=== PATIENT | male | born 1950 | race African-American/Black ===

== ENCOUNTER → 2017-08-19 | Outpatient (CLI) | payer MEDICARE, OTHER ==
--- NOTE | 2017-08-19 12:15 | DRAGON STRESS TEST REPORT ---
EXERCISE TREADMILL CARDIOLITE STRESS TEST USING SINGLE PHOTON EMMISION COMPUTERIZED TOMOGRAPHIC. DATE OF PROCEDURE: August 19, 2017, INDICATION : Chest pain CARDIAC RISK FACTORS: Hypertension, dyslipidemia RESTING EKG: Sinus rhythm without any baseline ST-T wave changes STRESS EKG: No significant ST segment changes from baseline. REASON FOR TERMINATION: Fatigue and tiredness and shortness of breath. PROCEDURE REPORT: Patient was exercised on a standard Nathan protocol. Patient exercised for total of 6 minutes and 15 seconds. Exercise stopped because of fatigue and shortness of breath. Patient achieved a maximum heart rate of 1 34 bpm which is 88% of predicted maximum. Maximum blood pressure was noted to be 205/87. Double product was noted to be 26 kcal CONCLUSIONS: Average exercise tolerance for patient age without any significant EKG changes with adequate heart rate and blood pressure response. NUCLEAR DATA: At rest the patient was given 15.49 millicuries of technetium 99 sestamibi injected intravenously. As per protocol rest gated SPECT images were obtained. On day of stress test, the patient was given intravenous LexiScan at a dose of 0.4 mg in 5 mL intravenously, followed by flush with normal saline. Subsequently the stress dose of 47.3 millicuries of technetium 99 sestamibi was injected intravenously. As per protocol stress gated images were obtained. NUCLEAR INTERPRETATION: Both raw and processed data were used for interpretation. Visual, qualitative, computer-generated quantitative data was used. There was good myocardial uptake of technetium compound. Motion artifact and soft tissue attenuations were noted. Increased visceral uptake was noted. No definitive areas of transient perfusion defect noted, No definitive areas of fixed perfusion defect or scars noted. EKG gated imaging showed LV EF at 62 %, rest and stress gated EF similar visually. T. I D. ratio was 1.26. Lung heart ratio noted to be within normal limits 0.31. No significant extracardiac and abnormal radiotracer activities were noted. RV free wall uptake was noted to be WNL. IMPRESSION: Also refer to comments under nuclear interpretation. Also test results needs to be interpreted in the context of pretest probability. 1. No definitive areas of transient perfusion defect noted. 2. There is no definitive scintigraphic evidence of myocardial infarction/scar. 3. EKG gated imaging shows left ventricular ejection fraction of approx. 62 %. 4. Clinical correlation requested as occasionally single vessel disease could be missed. RECOMMENDATIONS: Aggressive risk factor modification and medical management. Further evaluation may be needed if continued symptoms or other high risk indicators are noted on clinical evaluation. Close cardiology follow-up is also recommended. Clinical correlation with echocardiogram derived ejection fraction. Inability to exercise by itself can lead to increased cardiovascular event risks. Consider cardiology consultation and or follow-up if clinically indicated. I am available for cardiology evaluation and consultation if requested by the engineering writer, unless patient already has a pop singer. CHARY
--- NOTE | 2017-08-19 15:19 | XCELERA REPORT ---
[address] [address] Transthoracic Echocardiogram Report Name: TIFFAYN MOYA Age: 66 yrs Gender: Male : 1950 Patient Status: Outpatient Patient Location: RAD Study Date: 08/19/2017 10:34 AM Height: 71 in Weight: 250 lb BSA: 2.3 m2 Procedure: A complete two-dimensional transthoracic echocardiogram was performed (2D, M-mode, spectral and color flow Doppler). The study was technically difficult with many images being suboptimal in quality. Reason For Study: CP Ordering Physician: LESLIE MANDEL Performed By: Asael Ballard Interpretation Summary The left ventricular ejection fraction is normal. There is mild concentric left ventricular hypertrophy. The left ventricle is grossly normal size. Doppler measurements suggest pseudonormalized left ventricular relaxation, which is associated with grade II/IV or mild to moderate diastolic dysfunction Wall motion cannot be accurately commented on, but no definite regional wall motion abnormalities noted. The right ventricle is grossly normal size. The right ventricular systolic function is normal. The right atrium is normal in size The left atrial size is normal. There is a trace amount of mitral regurgitation There is no mitral valve stenosis. No aortic regurgitation is present. There is no aortic valve stenosis Tricuspid regurgitation jet envelope not well defined to measure RV systolic pressure accurately. No tricuspid regurgitation. The aortic root is not well visualized. The inferior vena cava appeared normal and decreased > 50% with respiration (RAP 5-10 mmHg) There is no pericardial effusion. MMode/2D Measurements & Calculations RVDd: 2.4 cm LVIDd: 4.9 cm FS: 37.1 % Ao root diam: 3.3 cm IVSd: 1.4 cm LVIDs: 3.1 cm EDV(Teich): 114.5 ml LVPWd: 1.4 cm ESV(Teich): 37.9 ml Ao root area: 8.4 cm2 EF(Teich): 66.9 % LA dimension: 3.5 cm Doppler Measurements & Calculations MV E max shelli: MV P1/2t max shelli: Ao V2 max: LV V1 max P.0 cm/sec 68.5 cm/sec 144.5 cm/sec 7.2 mmHg MV A max shelli: MV P1/2t: 84.5 msec Ao max PG: LV V1 max: 111.9 cm/sec 8.3 mmHg 133.8 cm/sec MV E/A: 0.61 MVA(P1/2t): 2.6 cm2 MV dec slope: 237.5 cm/sec2 PA V2 max: 106.9 cm/sec PA max P.6 mmHg Left Ventricle The left ventricle is grossly normal size. There is mild concentric left ventricular hypertrophy. The left ventricular ejection fraction is normal. Doppler measurements suggest pseudonormalized left ventricular relaxation, which is associated with grade II/IV or mild to moderate diastolic dysfunction. Wall motion cannot be accurately commented on, but no definite regional wall motion abnormalities noted. Right Ventricle The right ventricle is grossly normal size. There is normal right ventricular wall thickness. The right ventricular systolic function is normal. Atria The right atrium is normal in size. The left atrial size is normal. Interarterial septum not well visualized and not well dopplered. Cannot comment on ASD/PFO presence. Mitral Valve The mitral valve is not well visualized. There is no mitral valve stenosis. There is a trace amount of mitral regurgitation. Aortic Valve The aortic valve is not well visualized secondary to technical limitations. There is no aortic valve stenosis. No aortic regurgitation is present. Tricuspid Valve The tricuspid valve is not well visualized secondary to technical limitations. There is no tricuspid stenosis. Tricuspid regurgitation jet envelope not well defined to measure RV systolic pressure accurately. No tricuspid regurgitation. Pulmonic Valve The pulmonic valve is not well visualized. Great Vessels The aortic root is not well visualized. The inferior vena cava appeared normal and decreased > 50% with respiration (RAP 5-10 mmHg). Effusions There is no pericardial effusion. : LESLIE MANDEL > Jt Hernandez
== END ==
LOC: RAD 07:35
PROVIDERS: ATTEND Internal Medicine Cardiovascular Disease
DX: R07.9 Chest pain, unspecified (principal); I10 Essential (primary) hypertension; E78.5 Hyperlipidemia, unspecified
CPT/HCPCS: 93306; 93017; 78452; A9500; Q9969

== ENCOUNTER 2019-02-10 22:19 | Inpatient (IN) | payer MEDICARE, OTHER ==
[2019-02-10] MEDS ORDERED: NORMAL SALINE 1000 ML 1,000 ML IV ONE (23:51)
--- NOTE | 2019-02-10 23:51 | ER Document Report ---
ED Medical Screen (RME) - General Chief Complaint: Fever Stated Complaint: CHILLS,FEVER,FAST HEART RATE Time Seen by Provider: 02/10/19 23:41 Primary Care Provider: LESLIE MANDEL MD [Primary Care Provider] - Follow up as needed Notes: Patient is a 68-year-old male presents to the emergency department for generalized chills. States he took his temperature at home and it read 102. States he did undergo colonoscopy with Dr. Moise today. States he called their office when he found out he had a fever in their office told him to come to the emergency room. Patient's denying any URI complaints. Is complaining of generalized abdominal pain. States he is unsure if the generalized abdominal pain started before or after the colonoscopy. Patient's denying any nausea or vomiting. States he has not yet had a bowel movement since colonoscopy. Patient is denying any blood on his undergarments. GENERAL: Alert, interacts well. No acute distress. ABDOMEN: Soft, generalized tenderness noted all 4 quadrants. I have greeted and performed a rapid initial assessment of this patient. A comprehensive ED assessment and evaluation of the patient, analysis of test results and completion of the medical decision making process will be conducted by additional ED providers. I have specifically instructed the patient or family members with the patient to immediately return to any nursing staff should anything change in the patient's condition or with their chief complaint. This medical record was dictated with voice recognizing software. There may be grammatical, syntax errors that are unintended. TRAVEL OUTSIDE OF THE [place] IN LAST 30 DAYS: No - Related Data Allergies/Adverse Reactions: No Known Allergies Allergy (Unverified 12/19/15 08:45) Past Medical History - Past Medical History Cardiac Medical History: Reports: Hx Hypertension Denies: Hx Coronary Artery Disease, Hx Heart Attack Pulmonary Medical History: Denies: Hx Asthma, Hx Bronchitis, Hx COPD, Hx Pneumonia Neurological Medical History: Denies: Hx Cerebrovascular Accident, Hx Seizures Musculoskeltal Medical History: Reports Hx Arthritis - Neck, Right Shoulder - Immunizations Hx Diphtheria, Pertussis, Tetanus Vaccination: Yes Physical Exam - Vital signs Vitals: Temp Pulse Resp BP Pulse Ox 98.3 F 120 H 18 188/97 H 94 02/10/19 22:26 02/10/19 22:26 02/10/19 22:26 02/10/19 22:26 02/10/19 22:26 Course - Vital Signs Vital signs: Temp Pulse Resp BP Pulse Ox 98.3 F 120 H 18 188/97 H 94 02/10/19 22:26 02/10/19 22:26 02/10/19 22:26 02/10/19 22:02/10/19 22:26 Doctor's Discharge - Discharge Referrals: LESLIE MANDEL MD [Primary Care Provider] - Follow up as needed
[2019-02-11 00:08] LABS: VENOUS BLOOD HCO3 26.9 mmol/L (20-32); VENOUS BLOOD PH 7.46 (7.30-7.42)
[2019-02-11 00:10] LABS: HEMATOCRIT 42.8 % (37.9-51.0); HEMOGLOBIN 13.8 g/dL (13.5-17.0); MEAN CORPUSCULAR HEMOGLOBIN 23.8 pg (27.0-33.4); MEAN CORPUSCULAR HGB CONC 32.3 g/dL (32.0-36.0); MEAN CORPUSCULAR VOLUME 74 fl (80-97); PLATELET COUNT 216 10^3/uL (150-450); RED BLOOD COUNT 5.82 10^6/uL (4.35-5.55); WHITE BLOOD COUNT 9.8 10^3/uL (4.0-10.5)
[2019-02-11 00:12] LABS: INTERNATIONAL RATION (INR) 0.99; PROTHROMBIN TIME 13.1 SEC (11.4-15.4)
[2019-02-11 00:13] LABS: PARTIAL THROMBOPLASTIN TIME 30.5 SEC (23.5-35.8)
[2019-02-11 00:16] LABS: APPEARANCE,URINE CLEAR; BILIRUBIN,URINE NEGATIVE (NEGATIVE); COLOR,URINE YELLOW; GLUCOSE, URINE NEGATIVE (NEGATIVE); KETONES,URINE NEGATIVE (NEGATIVE); LEUKOCYTE ESTERASE,URINE NEGATIVE (NEGATIVE); NITRITE,URINE NEGATIVE (NEGATIVE); PROTEIN,URINE >=500 mg/dL (NEGATIVE); URINE SPECIFIC GRAVITY 1.018
--- NOTE | 2019-02-11 00:19 | RADIOLOGY REPORT (SQ) ---
EXAM DESCRIPTION: XR CHEST 2 VIEWS COMPLETED DATE/TME: 02/10/2019 23:41 CLINICAL HISTORY: 68 years, Male, fever COMPARISON: None. NUMBER OF VIEWS: Two TECHNIQUE: Frontal and lateral radiographs of the chest were obtained LIMITATIONS: None. FINDINGS: Cardiac and mediastinal contours are normal. Patchy left basilar opacity is noted, superimposed upon a linear band of atelectasis. A calcified granuloma is also noted about the left lower lobe. No pleural effusion or pneumothorax. IMPRESSION: Patchy left basilar opacity. Consider atelectasis or pneumonia to include aspiration. copyright 2010 [employer]- All Rights Reserved
[2019-02-11 00:20] LABS: ALBUMIN 3.9 g/dL (3.5-5.0); ALKALINE PHOSPHATASE 89 U/L (38-126); ANION GAP 10 (5-19); ASPARTATE AMINO TRANSFERASE 23 U/L (17-59); BILIRUBIN,DIRECT 0.2 mg/dL (0.0-0.4); BILIRUBIN,TOTAL 0.4 mg/dL (0.2-1.3); BLOOD UREA NITROGEN 15 mg/dL (7-20); CALCIUM 9.1 mg/dL (8.4-10.2); CARBON DIOXIDE 28 mmol/L (22-30); CHLORIDE 97 mmol/L (98-107); GLUCOSE 207 mg/dL (75-110); TOTAL PROTEIN 6.8 g/dL (6.3-8.2)
[2019-02-11] MEDS ORDERED: NORMAL SALINE 1000 ML 1,000 ML IV ONE (00:30)
--- NOTE | 2019-02-11 00:33 | ER Document Report ---
ED General - General Chief Complaint: Fever Stated Complaint: CHILLS,FEVER,FAST HEART RATE Time Seen by Provider: 02/10/19 23:41 Notes: Patient is a 68-year-old male that comes to the emergency department for chief complaint of shaking chills and a fever of 102 F at home. He states he had colonoscopy this morning with Dr. Moise to evaluate a mass in the colon, he states he did very well with the procedure, he states he received IV medicati on/sedation and was not intubated. He states there were no complications but after he got home he started shaking. He does have some abdominal pain, states this is been coming and going for a few days. He denies vomiting, diarrhea, cough, headache, sore throat. He states intermittently he will feel mildly short of breath but not at this time. He denies chest pain. 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 He is not on any blood thinners. He denies cardiovascular disease. He follows with [facility] internal medicine. TRAVEL OUTSIDE OF THE [place] IN LAST 30 DAYS: No - Related Data Allergies/Adverse Reactions: No Known Allergies Allergy (Unverified 12/19/15 08:45) Past Medical History - General Information source: Patient - Social History Smoking Status: Never Smoker Frequency of alcohol use: None Drug Abuse: None Lives with: Family Family History: Reviewed & Not Pertinent Patient has suicidal ideation: No Patient has homicidal ideation: No - Past Medical History Cardiac Medical History: Reports: Hx Hypertension Denies: Hx Coronary Artery Disease, Hx Heart Attack Pulmonary Medical History: Denies: Hx Asthma, Hx Bronchitis, Hx COPD, Hx Pneumonia Neurological Medical History: Denies: Hx Cerebrovascular Accident, Hx Seizures Endocrine Medical History: Reports: Hx Diabetes Mellitus Type 2 Musculoskeletal Medical History: Reports Hx Arthritis - Neck, Right Shoulder Past Surgical History: Reports: Hx Bowel Surgery - 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 - Immunizations Hx Diphtheria, Pertussis, Tetanus Vaccination: Yes Hx Pneumococcal Vaccination: 12/17/15 Review of Systems - Review of Systems Constitutional: See HPI EENT: No symptoms reported Cardiovascular: No symptoms reported Respiratory: No symptoms reported Gastrointestinal: See HPI Genitourinary: No symptoms reported Male Genitourinary: No symptoms reported Musculoskeletal: No symptoms reported Skin: No symptoms reported Hematologic/Lymphatic: No symptoms reported Neurological/Psychological: No symptoms reported Physical Exam - Vital signs Vitals: Temp Pulse Resp BP Pulse Ox 98.3 F 120 H 18 188/97 H 94 02/10/19 22:26 02/10/19 22:26 02/10/19 22:26 02/10/19 22:26 02/10/19 22:26 - Notes Notes: GENERAL: Alert, interacts well. Talkative and does not appear to be in distress. HEAD: Normocephalic, atraumatic. EYES: Pupils equal, round, and reactive to light. Extraocular movements intact. ENT: Oral mucosa moist, tongue midline. Oropharynx unremarkable. Airway patent. Nares patent, no nasal septal hematoma NECK: Full range of motion. Supple. Trachea midline. LUNGS: Clear to auscultation bilaterally, no wheezes, rales, or rhonchi. No respiratory distress. HEART: Tachycardia, normal rhythm, no murmur. ABDOMEN: Questionable mild distention, no noted significant tenderness, minimal generalized tenderness, no guarding or rigidity. GENITOURINARY: Deferred EXTREMITIES: Moves all 4 extremities spontaneously. No edema, normal radial and dorsalis pedis pulses bilaterally. No cyanosis. BACK: no cervical, thoracic, lumbar midline tenderness. No saddle anesthesia, normal distal neurovascular exam. Moves all extremities in full range of motion. NEUROLOGICAL: Alert and oriented x3. Normal speech. Cranial nerves II through XII grossly intact. PSYCH: Normal affect, normal mood. SKIN: Warm, dry, normal turgor. No rashes or lesions noted. Course - Re-evaluation Re-evalutation: Patient is not febrile here, reportedly he was febrile at home. He is tachycardic. He was given IV fluids, this did improve with IV fluids. Patient does not have a cough, tachypnea, hypoxia, however initial chest x-ray appears to show pneumonia. CBC shows elevation of neutrophils but no bandemia or leukocytosis. Chemistry nonspecific. Lactic acid is borderline at 2.5. Starting on Levaquin because of possible pneumonia versus abdominal source, patient reports some abdominal pain but he states this is not severe, he declines pain medication after he was given Tylenol. His abdomen is actually quite benign despite being mildly distended. CAT scan of the abdomen and pelvis was performed to rule out acute etiology, this shows no acute findings. On reevaluation patient remains well-appearing. Patient will be admitted for suspected pneumonia, fever, tachycardia, possibly sepsis without shock. Patient has not been given additional IV fluids because he does not have any evidence of hypotension or shock. I discussed with family, discussed with patient, and discussed with Dr. Barnard, internal medicine. Patient will be excepted to telemetry full admission. - Vital Signs Vital signs: Temp Pulse Resp BP Pulse Ox 102.8 F H 119 H 17 183/91 H 94 02/11/19 06:00 02/11/19 06:00 02/11/19 06:00 02/11/19 06:00 02/11/19 06:00 - Laboratory Result Diagrams: 02/10/19 23:40 02/10/19 23:40 Laboratory results interpreted by me: 02/10/19 02/10/19 02/10/19 23:40 23:40 23:40 RBC 5.82 H MCV 74 L MCH 23.8 L Seg Neuts % (Manual) 88 H Lymphocytes % (Manual) 6 L Abs Neuts (Manual) 8.6 H VBG pH Sodium 134.5 L Chloride 97 L Creatinine 1.58 H Est GFR ( Amer) 53 L Est GFR (MDRD) Non-Af 44 L Glucose 207 H Lactic Acid 2.5 H Urine Protein Urine Urobilinogen 02/10/19 02/10/19 23:40 23:40 RBC MCV MCH Seg Neuts % (Manual) Lymphocytes % (Manual) Abs Neuts (Manual) VBG pH 7.46 H Sodium Chloride Creatinine Est GFR ( Amer) Est GFR (MDRD) Non-Af Glucose Lactic Acid Urine Protein >=500 H Urine Urobilinogen 2.0 H Discharge - Discharge Clinical Impression: Tachycardia, Shaking chills Fever Qualifiers: Fever type: unspecified Qualified Code(s): R50.9 - Fever, unspecified Pneumonia Qualifiers: Pneumonia type: due to unspecified organism Laterality: left Lung location: lower lobe of lung Qualified Code(s): J18.1 - Lobar pneumonia, unspecified organism Abdominal pain Qualifiers: Abdominal location: generalized Qualified Code(s): R10.84 - Generalized abdominal pain Condition: Stable Disposition: ADMITTED INPATIENT Admitting Provider: Akil (Hospitalist) Unit Admitted: Telemetry
[2019-02-11 00:35] LABS: ABSOLUTE LYMPHOCYTES# (MANUAL) 0.6 10^3/uL (0.5-4.7); ABSOLUTE MONOCYTES # (MANUAL) 0.4 10^3/uL (0.1-1.4); BASOPHILS % (MANUAL) 0 % (0-2); EOSINOPHILS % (MANUAL) 2 % (0-6); HYPOCHROMASIA SLIGHT; LYMPHOCYTES % (MANUAL) 6 % (13-45); MONOCYTES % (MANUAL) 4 % (3-13); SEGMENTED NEUTROPHILS % (MAN) 88 % (42-78); TOTAL CELLS COUNTED 100
[2019-02-11 00:36] LABS: ANISOCYTOSIS SLIGHT
[2019-02-11 00:37] LABS: PLATELET COMMENT ADEQUATE
[2019-02-11] MEDS ORDERED: LEVOFLOXACIN 750 MG/D5W RTU 750 MG/150 ML RTUPB IV ONE (01:16)
[2019-02-11] MEDS ORDERED: ACETAMINOPHEN 325 MG TABLET PO ONE (03:00)
--- NOTE | 2019-02-11 03:51 | RADIOLOGY REPORT (SQ) ---
EXAM DESCRIPTION: CT ABDOMEN PELVIS WITH IV CONTRAST COMPLETED DATE/TME: 02/10/2019 23:50 CLINICAL HISTORY: 68 years Male, general pain Comparison: None. Technique: IV contrast. Coronal and sagittal reformat. This exam was performed according to our departmental dose-optimization program, which includes automated exposure control, adjustment of the mA and/or kV according to patient size and/or use of iterative reconstruction technique. [facility]: Dose Right [facility]: CareDose [facility]: Dose Right [facility]: Teradose 4D [facility]: EDF [employer] LIMITATIONS: None Findings: Likely benign renal cyst(s), not definitively characterized. Gallbladder dilation with 4.5 cm transverse diameter. Small sludge. Old granulomatous disease. Bowel related suture at the anterior lower abdomen. 1.0 cm left adrenal adenoma. Moderate L5-S1 disc bulge-osteophyte complex with [id number] spinal and foraminal stenoses. Bilateral perinephric fat stranding, nonspecific. No ascites. No pneumoperitoneum. Normal appendix. No bowel obstruction. No hydronephrosis or hydroureter. No renal/ureteral stone. No evidence of abdominal aortic aneurysm. Inferior thorax, liver, gallbladder, pancreas, spleen, adrenals, renal system, gastrointestinal tract, pelvic organs, lymphatics, vasculature, and musculoskeleton appear otherwise unremarkable. IMPRESSION: No acute findings.
[2019-02-11] MEDS ORDERED: DEXTROSE 40% GEL 15 GM TUBE PO PRN ×2 (04:15)
[2019-02-11] MEDS ORDERED: IPRATROPIUM/ALBUTEROL 0.5-2.5 MG/3 ML AMPUL NEB PRN (04:15)
[2019-02-11] MEDS ORDERED: DEXTROSE 50%-WATER 25 GM/50 ML DISP.SYRIN IV PRN ×2 (04:15)
[2019-02-11] MEDS ORDERED: GLUCAGON,HUMAN RECOMB 1 MG INJ IM PRN (04:15)
[2019-02-11] MEDS: HYDRALAZINE HCL INJ/PF 20 MG/1 ML SDV IV PRN (05:55)
[2019-02-11] MEDS: HEPARIN SOD (PORCINE) 5,000 UNIT/ML 1 ML VIAL SUBCUT SCH ×3 (05:55→21:18)
[2019-02-11] MEDS: NORMAL SALINE 1000 ML 1,000 ML IV PRN ×2 (06:11→14:22)
[2019-02-11] MEDS ORDERED: METRONIDAZOLE 500 MG/NS RTU 500 MG/100 ML RTUPB IV ONE ×2 (06:24→06:45)
--- NOTE | 2019-02-11 06:40 | PDOC H&P ---
History of Present Illness Admission Date/PCP: 02/11/19 04:19 TIFFANY FREIRE JR, MD Patient complains of: Fever History of Present Illness: TIFFANY MOYA is a 68 year old male with a past medical history of obesity, hypertension, diabetes, stage II chronic kidney disease, status post small bowel neuroendocrine tumor followed at [facility]. He presents postop day 0 following colonoscopy with biopsy x3 with Dr. Moise. He denies abdominal pain, cough, shortness of breath or chest pain. In the emergency room he has a chest x-ray with a left lower lobe scar which is known to the patient from the , a CT of the abdomen is negative for acute finding. He started on empiric antibiotics and referred to the hospitalist for admission. Past Medical History Cardiac Medical History: Reports: Hypertension Denies: Coronary Artery Disease, Myocardial Infarction Pulmonary Medical History: Denies: Asthma, Bronchitis, Chronic Obstructive Pulmonary Disease (COPD), Pneumonia Neurological Medical History: Denies: Seizures Endocrine Medical History: Reports: Diabetes Mellitus Type 2, Obesity Musculoskeltal Medical History: Reports: Arthritis - Neck, Right Shoulder Hematology: Denies: Anemia Past Surgical History Past Surgical History: Reports: Other - Small bowel neuroendocrine tumor resection Social History Information Source: Patient - Thank you very much Smoking Status: Unknown if Ever Smoked Frequency of Alcohol Use: Occasional Drugs: None - Advance Directive Resuscitation Status: Full Code Family History Family History: DM, Hypertension Parental Family History Reviewed: Yes Children Family History Reviewed: Yes Sibling(s) Family History Reviewed.: Yes Medication/Allergy Home Medications: Alfuzosin HCl [Uroxatral] 10 mg PO QHS 12/19/15 Aspirin [Ecotrin] 81 mg PO DAILY 12/19/15 Atorvastatin Calcium [Lipitor 10 mg Tablet] 10 mg PO QHS 12/19/15 Bupropion HCl [Wellbutrin 100 mg Tablet] 100 mg PO BID 12/19/15 Cholecalciferol (Vitamin D3) [Vitamin D3 2000 unit Tablet] 2,000 unit PO DAILY 12/19/15 Docusate Sodium [Stool Softener] 100 mg PO QHS 12/19/15 Finasteride [Proscar 5 mg Tablet] 5 mg PO DAILY 12/19/15 Hydrochlorothiazide 25 mg PO DAILY 12/19/15 Krill/Om3/Dha/Epa/Om6/Lip/Astx [Krill Oil 1,000 Mg Softgel] 1 each PO DAILY 12/19/15 Lisinopril 20 mg PO DAILY 12/19/15 Metoprolol Succinate [Toprol Xl 25 mg Tab.sr] 25 mg PO DAILY 12/19/15 Multivitamin [Multivitamins] 1 each PO DAILY 12/19/15 Tolterodine Tartrate [Detrol La] 4 mg PO QHS 12/19/15 Allergies/Adverse Reactions: No Known Allergies Allergy (Unverified 12/19/15 08:45) Review of Systems Constitutional: ABSENT: chills, fever(s), headache(s), weight gain, weight loss Eyes: ABSENT: visual disturbances Ears: ABSENT: hearing changes Cardiovascular: ABSENT: chest pain, dyspnea on exertion, edema, orthropnea, palpitations Respiratory: ABSENT: cough, hemoptysis Gastrointestinal: ABSENT: abdominal pain, constipation, diarrhea, hematemesis, hematochezia, nausea, vomiting Genitourinary: ABSENT: dysuria, hematuria Musculoskeletal: ABSENT: joint swelling Integumentary: ABSENT: rash, wounds Neurological: ABSENT: abnormal gait, abnormal speech, confusion, dizziness, focal weakness, syncope Psychiatric: ABSENT: anxiety, depression, homidical ideation, suicidal ideation Endocrine: ABSENT: cold intolerance, heat intolerance, polydipsia, polyuria Hematologic/Lymphatic: ABSENT: easy bleeding, easy bruising Physical Exam Vital Signs: Temp Pulse Resp BP Pulse Ox 102.8 F H 119 H 17 183/91 H 94 02/11/19 06:00 02/11/19 06:00 02/11/19 06:00 02/11/19 06:00 02/11/19 06:00 Intake & Output 02/09/19 02/10/19 02/11/19 11:59 11:59 11:59 Intake Total 2150 Balance 2150 Weight 114.9 kg General appearance: PRESENT: cooperative, mild distress, morbidly obese, well- developed, well-nourished Head exam: PRESENT: atraumatic, normocephalic Eye exam: PRESENT: conjunctiva pink, EOMI, PERRLA. ABSENT: scleral icterus Ear exam: PRESENT: normal external ear exam Mouth exam: PRESENT: moist, tongue midline Neck exam: ABSENT: carotid bruit, JVD, lymphadenopathy, thyromegaly Respiratory exam: PRESENT: clear to auscultation sha. ABSENT: rales, rhonchi, wheezes Cardiovascular exam: PRESENT: RRR. ABSENT: diastolic murmur, rubs, systolic murmur Pulses: PRESENT: normal dorsalis pedis pul Vascular exam: PRESENT: normal capillary refill GI/Abdominal exam: PRESENT: normal bowel sounds, soft. ABSENT: distended, guarding, mass, organolmegaly, rebound, tenderness Rectal exam: PRESENT: deferred Extremities exam: PRESENT: full ROM. ABSENT: calf tenderness, clubbing, pedal edema Neurological exam: PRESENT: alert, awake, oriented to person, oriented to place, oriented to time, oriented to situation, CN II-XII grossly intact. ABSENT: motor sensory deficit Psychiatric exam: PRESENT: appropriate affect, normal mood. ABSENT: homicidal ideation, suicidal ideation Skin exam: PRESENT: dry, intact, warm. ABSENT: cyanosis, rash Results Laboratory Results: 02/10/19 23:40 02/10/19 23:40 02/10/19 02/10/19 02/10/19 23:40 23:40 23:40 WBC 9.8 RBC 5.82 H Hgb 13.8 Hct 42.8 MCV 74 L MCH 23.8 L MCHC 32.3 RDW 14.0 Plt Count 216 Seg Neutrophils % Not Reportable VBG pH VBG pCO2 VBG HCO3 VBG Base Excess Sodium 134.5 L Potassium 4.0 Chloride 97 L Carbon Dioxide 28 Anion Gap 10 BUN 15 Creatinine 1.58 H Est GFR ( Amer) 53 L Glucose 207 H Lactic Acid 2.5 H Calcium 9.1 Total Bilirubin 0.4 AST 23 Alkaline Phosphatase 89 Total Protein 6.8 Albumin 3.9 Urine Color Urine Appearance Urine pH Ur Specific [place] Urine Protein Urine Glucose (UA) Urine Ketones Urine Blood Urine Nitrite Ur Leukocyte Esterase Urine WBC (Auto) Urine RBC (Auto) 02/10/19 02/10/19 23:40 23:40 WBC RBC Hgb Hct MCV MCH MCHC RDW Plt Count Seg Neutrophils % VBG pH 7.46 H VBG pCO2 39.0 VBG HCO3 26.9 VBG Base Excess 3.0 Sodium Potassium Chloride Carbon Dioxide Anion Gap BUN Creatinine Est GFR ( Amer) Glucose Lactic Acid Calcium Total Bilirubin AST Alkaline Phosphatase Total Protein Albumin Urine Color YELLOW Urine Appearance CLEAR Urine pH 6.0 Ur Specific [place] 1.018 Urine Protein >=500 H Urine Glucose (UA) NEGATIVE Urine Ketones NEGATIVE Urine Blood NEGATIVE Urine Nitrite NEGATIVE Ur Leukocyte Esterase NEGATIVE Urine WBC (Auto) 3 Urine RBC (Auto) 1 Impressions: Chest X-Ray 02/10/19 23:41 IMPRESSION: Patchy left basilar opacity. Consider atelectasis or pneumonia to include aspiration. copyright 2010 [employer]- All Rights Reserved Abdomen/Pelvis CT 02/10/19 23:50 IMPRESSION: No acute findings. Assessment and Plan - Diagnosis (1) Acute abdomen Is this a current diagnosis for this admission?: Yes Plan: Possibly related to POD 0 colonoscopy with biopsy, large-bore IV access, normal saline fluid challenge, imipenem and Flagyl, surgical consult pending (2) Diabetes Is this a current diagnosis for this admission?: Yes Plan: Humalog sliding scale while n.p.o. (3) Chronic kidney disease Is this a current diagnosis for this admission?: Yes Plan: Avoid nephrotoxic meds and doses, IV fluid challenge, follow-up chemistry (4) Fever Qualifiers: Fever type: unspecified Qualified Code(s): R50.9 - Fever, unspecified Is this a current diagnosis for this admission?: Yes Plan: Secondary to #1, - Time Time Spent with patient: 25-34 minutes - Inpatient Certification Medical Necessity: Need Close Monitoring Due to Risk of Patient Decompensation
[2019-02-11] MEDS ORDERED: METOPROLOL TARTRATE PF/INJ 5 MG/5 ML SDV IV PRN (06:42)
--- NOTE | 2019-02-11 07:00 | PDOC CONSULTATION ---
Consultation Consult Date: 02/11/19 Provider Consulted: MICHAEL BAUTISTA Consult reason:: Abdominal pains History of Present Illness Admission Date/PCP: 02/11/19 04:19 TIFFANY FREIRE JR, MD History of Present Illness: TIFFANY MOYA is a 68 year old male with known history of neuroendocrine tumor post ileal resection a year ago with chemotherapy chemotherapy at [facility], had a colonoscopy done by Dr. Moise yesterday. Patient is admitted for pneumonia and had chills and fever. His pains noted to come back this morning and with some nausea. Dr. Moise apparently removed 3 polyps. He was told that during the resection of the ileum there was a tumor on the nerve but then the surgeon at the [facility] cannot remove because of the risk of nerve injury. Patient had a CAT scan of the abdomen yesterday after colonoscopy which was essentially unremarkable. Patient able to pass a small amount of flatus but no bowel movement. Past Medical History Cardiac Medical History: Reports: Hypertension Denies: Coronary Artery Disease, Myocardial Infarction Pulmonary Medical History: Denies: Asthma, Bronchitis, Chronic Obstructive Pulmonary Disease (COPD), Pneumonia Neurological Medical History: Denies: Seizures Endocrine Medical History: Reports: Diabetes Mellitus Type 2, Obesity Musculoskeltal Medical History: Reports: Arthritis - Neck, Right Shoulder Hematology: Denies: Anemia Past Surgical History Past Surgical History: Reports: Other - Small bowel neuroendocrine tumor resection Social History Smoking Status: Former Smoker Frequency of Alcohol Use: Occasional Drugs: None - Advance Directive Resuscitation Status: Full Code Family History Family History: DM, Hypertension Parental Family History Reviewed: Yes Children Family History Reviewed: No Sibling(s) Family History Reviewed.: No Medication/Allergy Home Medications: Alfuzosin HCl [Uroxatral] 10 mg PO QHS 12/19/15 Aspirin [Ecotrin] 81 mg PO DAILY 12/19/15 Atorvastatin Calcium [Lipitor 10 mg Tablet] 10 mg PO QHS 12/19/15 Bupropion HCl [Wellbutrin 100 mg Tablet] 100 mg PO BID 12/19/15 Cholecalciferol (Vitamin D3) [Vitamin D3 2000 unit Tablet] 2,000 unit PO DAILY 12/19/15 Docusate Sodium [Stool Softener] 100 mg PO QHS 12/19/15 Finasteride [Proscar 5 mg Tablet] 5 mg PO DAILY 12/19/15 Hydrochlorothiazide 25 mg PO DAILY 12/19/15 Krill/Om3/Dha/Epa/Om6/Lip/Astx [Krill Oil 1,000 Mg Softgel] 1 each PO DAILY 12/19/15 Lisinopril 20 mg PO DAILY 12/19/15 Metoprolol Succinate [Toprol Xl 25 mg Tab.sr] 25 mg PO DAILY 12/19/15 Multivitamin [Multivitamins] 1 each PO DAILY 12/19/15 Tolterodine Tartrate [Detrol La] 4 mg PO QHS 12/19/15 Allergies/Adverse Reactions: No Known Allergies Allergy (Unverified 12/19/15 08:45) Review of Systems Constitutional: PRESENT: as per HPI Gastrointestinal: PRESENT: abdominal pain, nausea Physical Exam Vital Signs: Temp Pulse Resp BP Pulse Ox 102.8 F H 119 H 17 183/91 H 94 02/11/19 06:00 02/11/19 06:00 02/11/19 06:00 02/11/19 06:00 02/11/19 06:00 Intake & Output 02/09/19 02/10/19 02/11/19 06:59 06:59 06:59 Intake Total 2150 Balance 2150 Weight 114.9 kg General appearance: PRESENT: mild distress Head exam: PRESENT: atraumatic Eye exam: PRESENT: conjunctiva pink Mouth exam: PRESENT: moist Neck exam: PRESENT: full ROM Respiratory exam: PRESENT: rhonchi Cardiovascular exam: PRESENT: RRR Pulses: PRESENT: normal radial pulses Vascular exam: PRESENT: normal capillary refill GI/Abdominal exam: PRESENT: distended, soft, tenderness - Of the epigastric area Rectal exam: PRESENT: deferred Extremities exam: PRESENT: full ROM Musculoskeletal exam: PRESENT: ambulatory Neurological exam: PRESENT: alert, oriented to person, oriented to place, oriented to time, oriented to situation Psychiatric exam: PRESENT: appropriate affect Skin exam: PRESENT: normal color, warm Results Laboratory Results: 02/10/19 23:40 02/10/19 23:40 02/10/19 02/10/19 02/10/19 23:40 23:40 23:40 WBC 9.8 RBC 5.82 H Hgb 13.8 Hct 42.8 MCV 74 L MCH 23.8 L MCHC 32.3 RDW 14.0 Plt Count 216 Seg Neutrophils % Not Reportable VBG pH VBG pCO2 VBG HCO3 VBG Base Excess Sodium 134.5 L Potassium 4.0 Chloride 97 L Carbon Dioxide 28 Anion Gap 10 BUN 15 Creatinine 1.58 H Est GFR ( Amer) 53 L Glucose 207 H Lactic Acid 2.5 H Calcium 9.1 Total Bilirubin 0.4 AST 23 Alkaline Phosphatase 89 Total Protein 6.8 Albumin 3.9 Urine Color Urine Appearance Urine pH Ur Specific [place] Urine Protein Urine Glucose (UA) Urine Ketones Urine Blood Urine Nitrite Ur Leukocyte Esterase Urine WBC (Auto) Urine RBC (Auto) 02/10/19 02/10/19 23:40 23:40 WBC RBC Hgb Hct MCV MCH MCHC RDW Plt Count Seg Neutrophils % VBG pH 7.46 H VBG pCO2 39.0 VBG HCO3 26.9 VBG Base Excess 3.0 Sodium Potassium Chloride Carbon Dioxide Anion Gap BUN Creatinine Est GFR ( Amer) Glucose Lactic Acid Calcium Total Bilirubin AST Alkaline Phosphatase Total Protein Albumin Urine Color YELLOW Urine Appearance CLEAR Urine pH 6.0 Ur Specific [place] 1.018 Urine Protein >=500 H Urine Glucose (UA) NEGATIVE Urine Ketones NEGATIVE Urine Blood NEGATIVE Urine Nitrite NEGATIVE Ur Leukocyte Esterase NEGATIVE Urine WBC (Auto) 3 Urine RBC (Auto) 1 Impressions: Chest X-Ray 02/10/19 23:41 IMPRESSION: Patchy left basilar opacity. Consider atelectasis or pneumonia to include aspiration. copyright 2011 [employer]- All Rights Reserved Abdomen/Pelvis CT 02/10/19 23:50 IMPRESSION: No acute findings. Assessment & Plan - Diagnosis (1) Abdominal pain Qualifiers: Abdominal location: generalized Qualified Code(s): R10.84 - Generalized abdominal pain Is this a current diagnosis for this admission?: Yes (2) Pneumonia Qualifiers: Pneumonia type: due to unspecified organism Laterality: left Lung location: lower lobe of lung Qualified Code(s): J18.1 - Lobar pneumonia, unspecified organism Is this a current diagnosis for this admission?: Yes (3) Neuroendocrine tumor Is this a current diagnosis for this admission?: Yes - Time Time Spent: 30 to 50 Minutes - Inpatient Certification Medical Necessity: Need for IV Antibiotics - Plan Summary Plan Summary: 68-year-old male post ileal resection for neuroendocrine tumor last year at [facility]. Surgeon at the time noted tumor on the nerve and deferred removing it because of injury to the nerve and therefore patient was referred to [facility] and now on chemotherapy. Yesterday he had a colonoscopy done by Dr. Moise who found 3 polyps. He did have some mild abdominal pains before the colonoscopy and on admission today from the ED for pneumonia noted more pain to the epigastric area with nausea. Had a CT scan of the abdomen is was unremarkable Physical examination the abdomen is slightly distended but soft with mild tenderness in the epigastric area. Impression is abdominal pain possibly related to the colonoscopy versus referred pain from the pneumonia or part of the neuroendocrine tumor symptomatology Plans: 1 continue to monitor physical examination 2 neuroendocrine titers including CEA 3 may need upper endoscopy if symptoms persist
[2019-02-11] MEDS: INSULIN LISPRO 100 UNIT/ML 3 ML VIAL SUBCUT SCH ×3 (07:02→17:00)
[2019-02-11] MEDS ORDERED: IMIPENEM/CILASTATIN SODIUM INJ 500 MG VIAL IV ONE (07:22)
[2019-02-11] MEDS ORDERED: IMIPENEM/CILASTATIN SODIUM 1,000 MG in NORMAL SALINE 250 ML IV ONE (07:30)
[2019-02-11] MEDS: MORPHINE SULFATE 10 MG/ML INJ IV PRN (07:47)
--- NOTE | 2019-02-11 07:57 | Progress Note ---
Provider Note Provider Note: pt reexamined this am abd soft, non tender mild epigastric distress ct reviwed, no acute findings will start clears cont iv abx, re poss aspiration pneumonia seen on ct and cxr.
[2019-02-11] MEDS ORDERED: INSULIN LISPRO 100 UNIT/ML 3 ML VIAL SUBCUT SCH (08:00)
[2019-02-11] MEDS: IPRATROPIUM/ALBUTEROL 0.5-2.5 MG/3 ML AMPUL NEB SCH ×2 (08:10→16:17)
--- NOTE | 2019-02-11 08:51 | EKG REPORT ---
SEVERITY:- ABNORMAL ECG - SINUS TACHYCARDIA MAGNO, CONSIDER BIATRIAL ABNORMALITIES CONSIDER ANTERIOR INFARCT : Confirmed by: Jt Hernandez 11-Feb-2019 08:49:38
[2019-02-11] MEDS ORDERED: IMIPENEM/CILASTATIN SODIUM 1,000 MG in NORMAL SALINE 250 ML IV SCH ×2 (09:00→12:00)
[2019-02-11] MEDS: IMIPENEM/CILASTATIN SODIUM 500 MG in NORMAL SALINE 100 ML IV SCH ×2 (09:44→14:20)
[2019-02-11] MEDS: FLUTICASONE NASAL SPRAY 50 MCG/SPRY 120 SPRAY/16 GM NASL SCH ×2 (09:47→21:21)
[2019-02-11] MEDS ORDERED: METOPROLOL TARTRATE 25 MG TABLET PO SCH (10:00)
[2019-02-11] MEDS: METRONIDAZOLE 500 MG/NS RTU 500 MG/100 ML RTUPB IV SCH ×2 (11:57→17:02)
[2019-02-11] MEDS: CEFTRIAXONE 1 GM/D5W RTU 1 GM/50 ML RTUPB IV SCH (13:07)
[2019-02-11] MEDS ORDERED: ONDANSETRON HCL INJ/PF 4 MG/2 ML SDV IV PRN (16:11)
[2019-02-11] MEDS: LOSARTAN POTASSIUM 50 MG TABLET PO SCH (17:10)
[2019-02-11] MEDS: ACETAMINOPHEN 325 MG TABLET PO PRN ×2 (17:11→21:38)
[2019-02-11] MEDS ORDERED: (PENDING PHARMACY ID) (Telmisartan [Micardis 80 Mg Tablet] 80 MG) PO SCH (18:00)
[2019-02-11] MEDS: METOPROLOL SUCCINATE 25 MG TAB.SR.24H PO SCH (21:19)
[2019-02-11] MEDS: ASPIRIN 81 MG TABLET, ENT COATED PO SCH (21:20)
[2019-02-11] MEDS: TOLTERODINE TARTRATE 1 MG TABLET PO SCH (21:20)
[2019-02-11] MEDS: ATORVASTATIN CALCIUM 10 MG TABLET PO SCH (21:20)
[2019-02-11] MEDS ORDERED: (PENDING PHARMACY ID) (Bupropion Hcl [Wellbutrin Sr 100 Mg Tablet] 1 TAB) PO SCH (22:00)
[2019-02-11] MEDS ORDERED: LEVOFLOXACIN 750 MG/D5W RTU 750 MG/150 ML RTUPB IV SCH (22:00)
[2019-02-11] MEDS ORDERED: (PENDING PHARMACY ID) (Solifenacin Succinate [Vesicare] 10 MG) PO SCH (22:00)
[2019-02-12] MEDS: IPRATROPIUM/ALBUTEROL 0.5-2.5 MG/3 ML AMPUL NEB SCH ×4 (00:14→23:57)
[2019-02-12] MEDS: INSULIN LISPRO 100 UNIT/ML 3 ML VIAL SUBCUT SCH ×5 (00:58→23:04)
[2019-02-12] MEDS: MORPHINE SULFATE 10 MG/ML INJ IV PRN (04:02)
[2019-02-12 05:05] LABS: ABSOLUTE EOSINOPHILS # (AUTO) 0.1 10^3/uL (0.0-0.6); ABSOLUTE LYMPHOCYTES (AUTO) 0.5 10^3/uL (0.5-4.7); ABSOLUTE MONOCYTES (AUTO) 0.5 10^3/uL (0.1-1.4); ABSOLUTE NEUT (AUTO) 5.5 10^3/uL (1.7-8.2); BASOPHILS % (AUTO) 0.2 % (0-2); EOSINOPHILS % (AUTO) 0.8 % (0-6); HEMATOCRIT 39.2 % (37.9-51.0); HEMOGLOBIN 12.6 g/dL (13.5-17.0); LYMPHOCYTES % (AUTO) 7.7 % (13-45); MEAN CORPUSCULAR HEMOGLOBIN 23.5 pg (27.0-33.4); MEAN CORPUSCULAR HGB CONC 32.2 g/dL (32.0-36.0); MEAN CORPUSCULAR VOLUME 73 fl (80-97); PLATELET COUNT 178 10^3/uL (150-450); RED BLOOD COUNT 5.37 10^6/uL (4.35-5.55); RED CELL DISTRIBUTION WIDTH 14.2 % (11.5-14.0); SEGMENTED NEUTROPHILS % (AUTO) 83.3 % (42-78); TOTAL CELLS COUNTED % (AUTO) 100 %; WHITE BLOOD COUNT 6.6 10^3/uL (4.0-10.5)
[2019-02-12 05:34] LABS: ANION GAP 8 (5-19); BLOOD UREA NITROGEN 10 mg/dL (7-20); CALCIUM 8.3 mg/dL (8.4-10.2); CARBON DIOXIDE 24 mmol/L (22-30); CHLORIDE 103 mmol/L (98-107); GLUCOSE 163 mg/dL (75-110); POTASSIUM 3.9 mmol/L (3.6-5.0)
[2019-02-12] MEDS: HEPARIN SOD (PORCINE) 5,000 UNIT/ML 1 ML VIAL SUBCUT SCH ×3 (05:50→21:17)
--- NOTE | 2019-02-12 08:11 | Progress Note ---
Provider Note Provider Note: pt abd pain improved still rx for aspiration pneumonia please reconsult surgery as necessary.
--- NOTE | 2019-02-12 09:07 | PDOC PROGRESS REPORT ---
Subjective Progress Note for:: 02/12/19 Subjective:: TIFFANY MOYA is a 68 year old male with a past medical history of obesity, hypertension, diabetes, stage II chronic kidney disease, status post small bowel neuroendocrine tumor followed at [facility]. He presents postop day 0 following colonoscopy with biopsy x3 with Dr. Moise. He denies abdominal pain, cough, shortness of breath or chest pain. In the emergency room he has a chest x-ray with a left lower lobe scar which is known to the patient from the , a CT of the abdomen is negative for acute finding. He started on empiric antibiotics and referred to the hospitalist for admission. 02/12/2019. No acute events overnight. Comfortably resting in bed, in no apparent distress, passing flatus, has not had any bowel movement, denies any shortness of breath, fever, cough, nausea, vomiting, diarrhea, or any urinary symptoms. Abdomen is soft, denies any pain, surgery has signed off, plan is to keep for another day, advance diet, continue antibiotics for aspiration pneumonia and discharge home tomorrow. Reason For Visit: DM, PNUEMONIA Physical Exam Vital Signs: Temp Pulse Resp BP Pulse Ox 100.0 F 86 16 161/96 H 91 L 02/12/19 03:57 02/12/19 08:54 02/12/19 08:54 02/12/19 03:57 02/12/19 08:54 Intake & Output 02/11/19 02/12/19 02/13/19 06:59 06:59 06:59 Intake Total 2150 2090 Output Total 0 1250 Balance 2150 840 Weight 114.9 kg 115.5 kg General appearance: PRESENT: obese Head exam: PRESENT: atraumatic, normocephalic Respiratory exam: PRESENT: clear to auscultation sha. ABSENT: rales, rhonchi, wheezes Cardiovascular exam: PRESENT: RRR. ABSENT: diastolic murmur, rubs, systolic murmur GI/Abdominal exam: PRESENT: normal bowel sounds, soft. ABSENT: distended, guarding, mass, organolmegaly, rebound, tenderness Extremities exam: PRESENT: full ROM. ABSENT: calf tenderness, clubbing, pedal edema Neurological exam: PRESENT: alert, awake, oriented to person, oriented to place, oriented to time, oriented to situation, CN II-XII grossly intact. ABSENT: motor sensory deficit Results Laboratory Results: 02/12/19 04:46 02/12/19 04:46 02/12/19 02/12/19 04:46 04:46 WBC 6.6 RBC 5.37 Hgb 12.6 L Hct 39.2 MCV 73 L MCH 23.5 L MCHC 32.2 RDW 14.2 H Plt Count 178 Seg Neutrophils % 83.3 H Sodium 135.0 L Potassium 3.9 Chloride 103 Carbon Dioxide 24 Anion Gap 8 BUN 10 Creatinine 1.28 H Est GFR ( Amer) > 60 Glucose 163 H Calcium 8.3 L Impressions: Chest X-Ray 02/10/19 23:41 IMPRESSION: Patchy left basilar opacity. Consider atelectasis or pneumonia to include aspiration. copyright 2011 [employer]- All Rights Reserved Abdomen/Pelvis CT 02/10/19 23:50 IMPRESSION: No acute findings. Assessment and Plan - Diagnosis (1) Aspiration pneumonia Qualifiers: Lung location: unspecified part of lung Is this a current diagnosis for this admission?: Yes Plan: Patient had fever chills and abdominal pain post colonoscopy as outpatient. Likely aspiration pneumonitis VS bacterial aspiration pneumonia. T-max 100.0, SPO2 90 to 100%. WBC, cultures negative, denies any cough or chest pain. CXR patchy left basilar opacity, atelectasis VS aspiration pneumonia. Day 2 IV antibiotics. Day 2 IV ceftriaxone. Received 1 day of imipenem. Received 1 day of Flagyl. Received 1 dose of IV levofloxacin. Continue empiric IV antibiotics, monitor vitals, follow-up cultures, possible DC home tomorrow if vitals WNL. (2) Acute respiratory failure with hypoxia Is this a current diagnosis for this admission?: Yes Plan: Due to #2. Plan as per #2. (3) Abdominal pain Qualifiers: Abdominal location: generalized Qualified Code(s): R10.84 - Generalized abdominal pain Is this a current diagnosis for this admission?: Yes Plan: Was admitted for possible acute abdomen post colonoscopy as outpatient. Resolved. Passing flatus. Has not had a bowel movement. Denies any melena or hematochezia. CT abdomen negative for any acute abnormalities. Received 1 day of imipenem. Received 1 day of Flagyl. Received 1 dose of IV levofloxacin. Surgery has signed off. Benign abdomen on physical examination. Normal bowel sounds. Advance diet as tolerated. Supportive measures. (4) Chronic kidney disease Is this a current diagnosis for this admission?: Yes Plan: Avoid nephrotoxic meds and doses, IV fluid challenge, follow-up chemistry (5) Diabetes Qualifiers: Diabetes mellitus type: type 2 Is this a current diagnosis for this admission?: Yes Plan: Controlled. Takes sitagliptin at home. Diabetic diet, sliding scale insulin, Accu-Chek, hypoglycemic protocol. Adjust dosage as needed. Outpatient PCP follow-up. Restart home meds upon discharge. (6) Fever Qualifiers: Fever type: unspecified Qualified Code(s): R50.9 - Fever, unspecified Is this a current diagnosis for this admission?: Yes Plan: T-max 100. Plan as per #1. (7) Neuroendocrine tumor Is this a current diagnosis for this admission?: Yes Plan: Establish outpatient care. Outpatient oncology follow-up. (8) Hypertension Is this a current diagnosis for this admission?: Yes Plan: Not optimized. Takes losartan, metoprolol and hydrochlorothiazide as outpatient. Increase losartan 200 mg p.o. daily, continue Toprol-XL 25 mg nightly, switch hydrochlorothiazide with chlorthalidone as the latter one is long acting. Adjust meds as needed.
[2019-02-12] MEDS ORDERED: FINASTERIDE 5 MG TABLET PO SCH (10:00)
[2019-02-12] MEDS ORDERED: HYDROCHLOROTHIAZIDE 25 MG TABLET PO SCH (10:00)
[2019-02-12] MEDS ORDERED: SITAGLIPTIN PHOSPHATE 50 MG TABLET PO SCH (10:00)
[2019-02-12] MEDS ORDERED: CHLORTHALIDONE 25 MG TABLET PO SCH (10:00)
[2019-02-12] MEDS ORDERED: TAMSULOSIN HCL 0.4 MG CAP.SR.24H PO SCH (10:00)
[2019-02-12] MEDS: FLUTICASONE NASAL SPRAY 50 MCG/SPRY 120 SPRAY/16 GM NASL SCH ×2 (10:51→21:16)
[2019-02-12] MEDS: TOLTERODINE TARTRATE 1 MG TABLET PO SCH ×2 (10:51→21:17)
[2019-02-12] MEDS: ACETAMINOPHEN 325 MG TABLET PO PRN ×2 (10:52→21:17)
[2019-02-12] MEDS: CEFTRIAXONE 1 GM/D5W RTU 1 GM/50 ML RTUPB IV SCH (16:14)
[2019-02-12] MEDS: LOSARTAN POTASSIUM 50 MG TABLET PO SCH (19:42)
[2019-02-12] MEDS: HYDRALAZINE HCL INJ/PF 20 MG/1 ML SDV IV PRN (21:16)
[2019-02-12] MEDS: ASPIRIN 81 MG TABLET, ENT COATED PO SCH (21:17)
[2019-02-12] MEDS: ATORVASTATIN CALCIUM 10 MG TABLET PO SCH (21:17)
[2019-02-12] MEDS: METOPROLOL SUCCINATE 25 MG TAB.SR.24H PO SCH (21:18)
[2019-02-12] MEDS: MAGNESIUM HYDROXIDE SUSP 30 ML UDCUP PO PRN (22:58)
[2019-02-13] MEDS: INSULIN LISPRO 100 UNIT/ML 3 ML VIAL SUBCUT SCH ×3 (05:15→17:36)
[2019-02-13] MEDS: HEPARIN SOD (PORCINE) 5,000 UNIT/ML 1 ML VIAL SUBCUT SCH ×3 (05:26→22:31)
[2019-02-13 05:44] LABS: ABSOLUTE EOSINOPHILS # (AUTO) 0.2 10^3/uL (0.0-0.6); ABSOLUTE LYMPHOCYTES (AUTO) 0.6 10^3/uL (0.5-4.7); ABSOLUTE MONOCYTES (AUTO) 0.7 10^3/uL (0.1-1.4); ABSOLUTE NEUT (AUTO) 5.6 10^3/uL (1.7-8.2); BASOPHILS % (AUTO) 0.2 % (0-2); EOSINOPHILS % (AUTO) 2.1 % (0-6); HEMATOCRIT 41.1 % (37.9-51.0); HEMOGLOBIN 13.4 g/dL (13.5-17.0); MEAN CORPUSCULAR HEMOGLOBIN 23.7 pg (27.0-33.4); MEAN CORPUSCULAR HGB CONC 32.7 g/dL (32.0-36.0); MEAN CORPUSCULAR VOLUME 73 fl (80-97); MONOCYTES % (AUTO) 9.9 % (3-13); PLATELET COUNT 197 10^3/uL (150-450); RED BLOOD COUNT 5.68 10^6/uL (4.35-5.55); RED CELL DISTRIBUTION WIDTH 14.1 % (11.5-14.0); SEGMENTED NEUTROPHILS % (AUTO) 78.8 % (42-78); TOTAL CELLS COUNTED % (AUTO) 100 %; WHITE BLOOD COUNT 7.2 10^3/uL (4.0-10.5)
[2019-02-13 06:13] LABS: ALBUMIN 3.4 g/dL (3.5-5.0); ALKALINE PHOSPHATASE 73 U/L (38-126); ANION GAP 9 (5-19); ASPARTATE AMINO TRANSFERASE 23 U/L (17-59); BILIRUBIN,DIRECT 0.3 mg/dL (0.0-0.4); BILIRUBIN,TOTAL 0.9 mg/dL (0.2-1.3); BLOOD UREA NITROGEN 10 mg/dL (7-20); CALCIUM 9.1 mg/dL (8.4-10.2); CARBON DIOXIDE 28 mmol/L (22-30); CHLORIDE 99 mmol/L (98-107); GLUCOSE 162 mg/dL (75-110); POTASSIUM 3.6 mmol/L (3.6-5.0); TOTAL PROTEIN 6.4 g/dL (6.3-8.2)
[2019-02-13] MEDS: IPRATROPIUM/ALBUTEROL 0.5-2.5 MG/3 ML AMPUL NEB SCH ×3 (08:06→23:56)
[2019-02-13] MEDS ORDERED: FINASTERIDE 5 MG TABLET PO SCH (08:45)
[2019-02-13] MEDS: TAMSULOSIN HCL 0.4 MG CAP.SR.24H PO SCH (09:44)
[2019-02-13] MEDS: TOLTERODINE TARTRATE 1 MG TABLET PO SCH ×2 (09:44→22:31)
[2019-02-13] MEDS: HYDROCHLOROTHIAZIDE 25 MG TABLET PO SCH (09:45)
[2019-02-13] MEDS: SITAGLIPTIN PHOSPHATE 50 MG TABLET PO SCH (09:45)
[2019-02-13] MEDS: CHLORTHALIDONE 25 MG TABLET PO SCH (09:45)
[2019-02-13] MEDS: FLUTICASONE NASAL SPRAY 50 MCG/SPRY 120 SPRAY/16 GM NASL SCH ×2 (09:46→22:31)
[2019-02-13] MEDS: CEFTRIAXONE 1 GM/D5W RTU 1 GM/50 ML RTUPB IV SCH (14:03)
[2019-02-13] MEDS: AMLODIPINE BESYLATE 5 MG TABLET PO SCH (15:46)
[2019-02-13] MEDS: LOSARTAN POTASSIUM 50 MG TABLET PO SCH (17:18)
--- NOTE | 2019-02-13 18:47 | PDOC PROGRESS REPORT ---
Subjective Progress Note for:: 02/13/19 Subjective:: TIFFANY MOYA is a 68 year old male with a past medical history of obesity, hypertension, diabetes, stage II chronic kidney disease, status post small bowel neuroendocrine tumor followed at [facility]. He presents postop day 0 following colonoscopy with biopsy x3 with Dr. Moise. He denies abdominal pain, cough, shortness of breath or chest pain. In the emergency room he has a chest x-ray with a left lower lobe scar which is known to the patient from the , a CT of the abdomen is negative for acute finding. He started on empiric antibiotics and referred to the hospitalist for admission. 02/12/2019. No acute events overnight. Comfortably resting in bed, in no apparent distress, passing flatus, has not had any bowel movement, denies any shortness of breath, fever, cough, nausea, vomiting, diarrhea, or any urinary symptoms. Abdomen is soft, denies any pain, surgery has signed off, plan is to keep for another day, advance diet, continue antibiotics for aspiration pneumonia and discharge home tomorrow. 02/13/2019. No acute events overnight. Patient comfortably sitting bed in no apparent distress. Passing flatus, had one bowel movement. Denies any abdominal pain, nausea, vomiting, diarrhea, constipation or any urinary symptoms. Patient could be discharged home today however his blood pressure has not been optimized. Patient can be discharged home tomorrow if BP is optimized. Reason For Visit: DM, PNUEMONIA Physical Exam Vital Signs: Temp Pulse Resp BP Pulse Ox 99.8 F 81 16 150/110 H 96 02/13/19 15:19 02/13/19 15:52 02/13/19 15:52 02/13/19 15:19 02/13/19 15:52 Intake & Output 02/12/19 02/13/19 02/14/19 06:59 06:59 06:59 Intake Total 2090 1003 1590 Output Total 1250 750 250 Balance 809 570 0008 Weight 115.5 kg 110.5 kg General appearance: PRESENT: no acute distress, obese, well-developed, well- nourished Head exam: PRESENT: atraumatic, normocephalic Eye exam: PRESENT: conjunctiva pink, EOMI, PERRLA. ABSENT: scleral icterus Ear exam: PRESENT: normal external ear exam Mouth exam: PRESENT: moist, tongue midline Neck exam: ABSENT: carotid bruit, JVD, lymphadenopathy, thyromegaly Respiratory exam: PRESENT: clear to auscultation sha. ABSENT: rales, rhonchi, wheezes Cardiovascular exam: PRESENT: RRR. ABSENT: diastolic murmur, rubs, systolic murmur Pulses: PRESENT: normal dorsalis pedis pul Vascular exam: PRESENT: normal capillary refill GI/Abdominal exam: PRESENT: normal bowel sounds, soft. ABSENT: distended, guarding, mass, organolmegaly, rebound, tenderness Rectal exam: PRESENT: deferred Extremities exam: PRESENT: full ROM. ABSENT: calf tenderness, clubbing, pedal edema Neurological exam: PRESENT: alert, awake, oriented to person, oriented to place, oriented to time, oriented to situation, CN II-XII grossly intact. ABSENT: motor sensory deficit Psychiatric exam: PRESENT: appropriate affect, normal mood. ABSENT: homicidal ideation, suicidal ideation Skin exam: PRESENT: dry, intact, warm. ABSENT: cyanosis, rash Results Laboratory Results: 02/13/19 05:12 02/13/19 05:12 02/13/19 02/13/19 05:12 05:12 WBC 7.2 RBC 5.68 H Hgb 13.4 L Hct 41.1 MCV 73 L MCH 23.7 L MCHC 32.7 RDW 14.1 H Plt Count 197 Seg Neutrophils % 78.8 H Sodium 135.8 L Potassium 3.6 Chloride 99 Carbon Dioxide 28 Anion Gap 9 BUN 10 Creatinine 1.18 Est GFR ( Amer) > 60 Glucose 162 H Calcium 9.1 Magnesium 2.0 Total Bilirubin 0.9 AST 23 Alkaline Phosphatase 73 Total Protein 6.4 Albumin 3.4 L Impressions: Chest X-Ray 02/10/19 23:41 IMPRESSION: Patchy left basilar opacity. Consider atelectasis or pneumonia to include aspiration. copyright 2011 [employer]- All Rights Reserved Abdomen/Pelvis CT 02/10/19 23:50 IMPRESSION: No acute findings. Assessment and Plan - Diagnosis (1) Aspiration pneumonia Qualifiers: Lung location: unspecified part of lung Is this a current diagnosis for this admission?: Yes Plan: Patient had fever chills and abdominal pain post colonoscopy as outpatient. Likely aspiration pneumonitis VS bacterial aspiration pneumonia. T-max 100.0, SPO2 90 to 100%. WBC, cultures negative, denies any cough or chest pain. CXR patchy left basilar opacity, atelectasis VS aspiration pneumonia. Day 3 IV antibiotics. Day 3 IV ceftriaxone. Received 1 day of imipenem. Received 1 day of Flagyl. Received 1 dose of IV levofloxacin. Continue empiric IV antibiotics, monitor vitals, follow-up cultures, possible DC home tomorrow if vitals WNL. (2) Acute respiratory failure with hypoxia Is this a current diagnosis for this admission?: Yes Plan: Due to #2. Plan as per #2. (3) Abdominal pain Qualifiers: Abdominal location: generalized Qualified Code(s): R10.84 - Generalized abdominal pain Is this a current diagnosis for this admission?: Yes Plan: Was admitted for possible acute abdomen post colonoscopy as outpatient. Resolved. Passing flatus. Had a bowel movement. Denies any melena or hematochezia. CT abdomen negative for any acute abnormalities. Received 1 day of imipenem. Received 1 day of Flagyl. Received 1 dose of IV levofloxacin. Surgery has signed off. Benign abdomen on physical examination. Normal bowel sounds. Advance diet as tolerated. Supportive measures. (4) Chronic kidney disease Is this a current diagnosis for this admission?: Yes Plan: Avoid nephrotoxic meds and doses, IV fluid challenge, follow-up chemistry (5) Diabetes Qualifiers: Diabetes mellitus type: type 2 Is this a current diagnosis for this admission?: Yes Plan: Controlled. Takes sitagliptin at home. Diabetic diet, sliding scale insulin, Accu-Chek, hypoglycemic protocol. Adjust dosage as needed. Outpatient PCP follow-up. Restart home meds upon discharge. (6) Fever Qualifiers: Fever type: unspecified Qualified Code(s): R50.9 - Fever, unspecified Is this a current diagnosis for this admission?: Yes Plan: Resolved. Plan as per #1. (7) Neuroendocrine tumor Is this a current diagnosis for this admission?: Yes Plan: Establish outpatient care. Outpatient oncology follow-up. (8) Hypertension Is this a current diagnosis for this admission?: Yes Plan: Not optimized. I have added amlodipine 5 mg p.o. daily. Takes losartan, metoprolol and hydrochlorothiazide as outpatient. Increase losartan 100 mg p.o. daily Continue Toprol-XL 25 mg nightly Switch hydrochlorothiazide with chlorthalidone as the latter one is long acting. Added amlodipine 5 mg p.o. daily. Adjust meds as needed.
[2019-02-13] MEDS: ATORVASTATIN CALCIUM 10 MG TABLET PO SCH (22:30)
[2019-02-13] MEDS: ASPIRIN 81 MG TABLET, ENT COATED PO SCH (22:30)
[2019-02-13] MEDS: METOPROLOL SUCCINATE 25 MG TAB.SR.24H PO SCH (22:30)
[2019-02-13] MEDS: MAGNESIUM HYDROXIDE SUSP 30 ML UDCUP PO PRN (22:30)
[2019-02-13] MEDS ORDERED: (PENDING PHARMACY ID) (Bupropion Hcl [Wellbutrin Sr 100 Mg Tablet] 1 TAB) PO SCH (23:00)
[2019-02-14] MEDS: INSULIN LISPRO 100 UNIT/ML 3 ML VIAL SUBCUT SCH ×2 (00:48→05:43)
[2019-02-14 03:39] VITALS: BP 107/82
[2019-02-14] MEDS: HEPARIN SOD (PORCINE) 5,000 UNIT/ML 1 ML VIAL SUBCUT SCH (05:42)
[2019-02-14] MEDS ORDERED: FINASTERIDE 5 MG TABLET PO SCH (08:00)
[2019-02-14] MEDS: IPRATROPIUM/ALBUTEROL 0.5-2.5 MG/3 ML AMPUL NEB SCH (08:17)
[2019-02-14 10:39] LABS: ABSOLUTE EOSINOPHILS # (AUTO) 0.2 10^3/uL (0.0-0.6); ABSOLUTE LYMPHOCYTES (AUTO) 0.6 10^3/uL (0.5-4.7); ABSOLUTE MONOCYTES (AUTO) 0.6 10^3/uL (0.1-1.4); ABSOLUTE NEUT (AUTO) 3.9 10^3/uL (1.7-8.2); BASOPHILS % (AUTO) 0.3 % (0-2); EOSINOPHILS % (AUTO) 4.6 % (0-6); HEMOGLOBIN 13.9 g/dL (13.5-17.0); LYMPHOCYTES % (AUTO) 10.5 % (13-45); MEAN CORPUSCULAR HEMOGLOBIN 23.5 pg (27.0-33.4); MEAN CORPUSCULAR HGB CONC 32.4 g/dL (32.0-36.0); MEAN CORPUSCULAR VOLUME 73 fl (80-97); MONOCYTES % (AUTO) 11.4 % (3-13); PLATELET COUNT 210 10^3/uL (150-450); RED BLOOD COUNT 5.92 10^6/uL (4.35-5.55); RED CELL DISTRIBUTION WIDTH 14.1 % (11.5-14.0); SEGMENTED NEUTROPHILS % (AUTO) 73.2 % (42-78); TOTAL CELLS COUNTED % (AUTO) 100 %; WHITE BLOOD COUNT 5.3 10^3/uL (4.0-10.5)
[2019-02-14] MEDS: FLUTICASONE NASAL SPRAY 50 MCG/SPRY 120 SPRAY/16 GM NASL SCH (10:50)
[2019-02-14] MEDS: TAMSULOSIN HCL 0.4 MG CAP.SR.24H PO SCH (10:52)
[2019-02-14] MEDS: TOLTERODINE TARTRATE 1 MG TABLET PO SCH (10:52)
[2019-02-14] MEDS: HYDROCHLOROTHIAZIDE 25 MG TABLET PO SCH (10:53)
[2019-02-14] MEDS: CHLORTHALIDONE 25 MG TABLET PO SCH (10:54)
[2019-02-14] MEDS: AMLODIPINE BESYLATE 5 MG TABLET PO SCH (10:54)
[2019-02-14 10:56] LABS: ALBUMIN 3.7 g/dL (3.5-5.0); ALKALINE PHOSPHATASE 69 U/L (38-126); ANION GAP 10 (5-19); ASPARTATE AMINO TRANSFERASE 23 U/L (17-59); BILIRUBIN,DIRECT 0.1 mg/dL (0.0-0.4); BILIRUBIN,TOTAL 0.6 mg/dL (0.2-1.3); BLOOD UREA NITROGEN 12 mg/dL (7-20); CALCIUM 9.3 mg/dL (8.4-10.2); CARBON DIOXIDE 29 mmol/L (22-30); CHLORIDE 96 mmol/L (98-107); GLUCOSE 188 mg/dL (75-110); POTASSIUM 4.1 mmol/L (3.6-5.0); TOTAL PROTEIN 6.8 g/dL (6.3-8.2)
[2019-02-14] MEDS: SITAGLIPTIN PHOSPHATE 50 MG TABLET PO SCH (10:56)
--- NOTE | 2019-02-14 14:49 | PDOC DISCHARGE SUMMARY ---
Impression - Admit/DC Date/PCP Admission Date/Primary Care Provider: 02/11/19 04:19 TIFFANY FREIRE JR, MD Discharge Date: 02/14/19 - Discharge Diagnosis (1) Aspiration pneumonia Is this a current diagnosis for this admission?: Yes (2) Acute respiratory failure with hypoxia Is this a current diagnosis for this admission?: Yes (3) Acute abdomen Is this a current diagnosis for this admission?: Yes (4) Chronic kidney disease Is this a current diagnosis for this admission?: Yes (5) Diabetes Is this a current diagnosis for this admission?: Yes (6) Fever Is this a current diagnosis for this admission?: Yes (7) Neuroendocrine tumor Is this a current diagnosis for this admission?: Yes (8) Hypertension Is this a current diagnosis for this admission?: Yes - Assessment Summary: Patient had fever chills and abdominal pain post colonoscopy as outpatient. Likely aspiration pneumonitis VS bacterial aspiration pneumonia. T-max 100.0, SPO2 90 to 100%. WBC, cultures negative, denies any cough or chest pain. CXR patchy left basilar opacity, atelectasis VS aspiration pneumonia. Day 3 IV antibiotics. Day 3 IV ceftriaxone. Received 1 day of imipenem. Received 1 day of Flagyl. Received 1 dose of IV levofloxacin. Continue empiric IV antibiotics, monitor vitals, follow-up cultures, possible DC home tomorrow if vitals WNL. (2) Acute respiratory failure with hypoxia Is this a current diagnosis for this admission?: Yes Plan: Due to #2. Plan as per #2. (3) Abdominal pain Qualifiers: Abdominal location: generalized Qualified Code(s): R10.84 - Generalized abdominal pain Is this a current diagnosis for this admission?: Yes Plan: Was admitted for possible acute abdomen post colonoscopy as outpatient. Resolved. Passing flatus. Had a bowel movement. Denies any melena or hematochezia. CT abdomen negative for any acute abnormalities. Received 1 day of imipenem. Received 1 day of Flagyl. Received 1 dose of IV levofloxacin. Surgery has signed off. Benign abdomen on physical examination. Normal bowel sounds. Advance diet as tolerated. Supportive measures. (4) Chronic kidney disease Is this a current diagnosis for this admission?: Yes Plan: Avoid nephrotoxic meds and doses, IV fluid challenge, follow-up chemistry 02/14/2019-patient creatinine today is 1.25 with GFR more than 60. Stable. (5) Diabetes Qualifiers: Diabetes mellitus type: type 2 Is this a current diagnosis for this admission?: Yes Plan: Controlled. Takes sitagliptin at home. Diabetic diet, sliding scale insulin, Accu-Chek, hypoglycemic protocol. Adjust dosage as needed. Outpatient PCP follow-up. Restart home meds upon discharge. 02/14/2019-patient has history of type 2 diabetes mellitus. Blood sugar is 192. Stable. Patient is advised to resume his home medications upon discharge. (6) Fever Qualifiers: Fever type: unspecified Qualified Code(s): R50.9 - Fever, unspecified Is this a current diagnosis for this admission?: Yes Plan: Resolved. Plan as per #1. 02/14/2019-T-max is 98.2 today. Afebrile. Fever is resolved. (7) Neuroendocrine tumor Is this a current diagnosis for this admission?: Yes Plan: Establish outpatient care. Outpatient oncology follow-up. 02/14/2019-patient is to follow-up with oncologist at the [facility] as an outpatient. (8) Hypertension Is this a current diagnosis for this admission?: Yes Plan: Not optimized. I have added amlodipine 5 mg p.o. daily. Takes losartan, metoprolol and hydrochlorothiazide as outpatient. Increase losartan 100 mg p.o. daily Continue Toprol-XL 25 mg nightly Switch hydrochlorothiazide with chlorthalidone as the latter one is long acting. Added amlodipine 5 mg p.o. daily. Adjust meds as needed. 02/14/2019-patient blood pressure today is 107/82. Patient is going home on losartan 100 mg daily, Toprol-XL 25 mg daily, chlorthalidone 25 mg p.o. daily, amlodipine 5 mg daily. Patient advised to be compliant with his medications. - Additional Information Resuscitation Status: Full Code Discharge Diet: Cardiac Discharge Activity: Activity As Tolerated, Balance Activity w/Rest, Slowly Increase Activity Referrals: LESLIE MANDEL MD [MANAGED CARE SPECIALIST] - 02/27/19 4:00 pm ([phone]) Prescriptions: Amox Tr/Potassium Clavulanate [Augmentin 875-125 mg Tablet] 1 tab PO BID 5 Days #10 tablet Chlorthalidone [Hygroton 25 mg Tablet] 25 mg PO DAILY 30 Days #30 tablet Amlodipine Besylate [Norvasc 5 mg Tablet] 5 mg PO DAILY 30 Days #30 tablet Home Medications: Alfuzosin HCl [Uroxatral] 10 mg PO DAILY 12/19/15 Aspirin [Ecotrin] 81 mg PO QHS 12/19/15 Atorvastatin Calcium [Lipitor 10 mg Tablet] 10 mg PO QHS 12/19/15 Cholecalciferol (Vitamin D3) [Vitamin D3 2000 unit Tablet] 2,000 unit PO DAILY 12/19/15 Finasteride [Proscar 5 mg Tablet] 5 mg PO DAILY 12/19/15 Krill/Om3/Dha/Epa/Om6/Lip/Astx [Krill Oil 1,000 mg Softgel] 1 each PO DAILY 12/19/15 Metoprolol Succinate [Toprol Xl 25 mg Tab.sr] 25 mg PO QHS 12/19/15 Multivitamin [Multivitamins] 1 each PO DAILY 12/19/15 Bupropion HCl [Wellbutrin Sr 100 mg Tablet] 1 tab PO Q12 02/11/19 Calcium Carbonate [Calcium] 600 mg PO QHS 02/11/19 Polyethylene Glycol 3350 [Miralax] 1 dose PO PRN PRN 02/11/19 Sitagliptin Phosphate [Januvia] 100 mg PO DAILY 02/11/19 Solifenacin Succinate [Vesicare] 10 mg PO QHS 02/11/19 Telmisartan [Micardis 80 mg Tablet] 80 mg PO QPM 02/11/19 Amlodipine Besylate [Norvasc 5 mg Tablet] 5 mg PO DAILY 30 Days #30 tablet 02/13/19 Amox Tr/Potassium Clavulanate [Augmentin 875-125 mg Tablet] 1 tab PO BID 5 Days #10 tablet 02/13/19 Chlorthalidone [Hygroton 25 mg Tablet] 25 mg PO DAILY 30 Days #30 tablet 02/13/19 History of Present Illiness History of Present Illness: TIFFANY MOYA is a 68 year old male Physical Exam Vital Signs: Temp Pulse Resp BP Pulse Ox 98.2 F 75 16 107/82 95 02/14/19 13:12 02/14/19 13:12 02/14/19 13:12 02/14/19 13:12 02/14/19 13:12 Intake & Output 02/13/19 02/14/19 02/15/19 06:59 06:59 06:59 Intake Total 1003 1620 Output Total 750 250 Balance 253 1370 Weight 110.5 kg 111.6 kg Results Laboratory Results: WBC 5.3 10^3/uL (4.0-10.5) 02/14/19 10:14 RBC 5.92 10^6/uL (4.35-5.55) H 02/14/19 10:14 Hgb 13.9 g/dL (13.5-17.0) 02/14/19 10:14 Hct 43.0 % (37.9-51.0) 02/14/19 10:14 MCV 73 fl (80-97) L 02/14/19 10:14 MCH 23.5 pg (27.0-33.4) L 02/14/19 10:14 MCHC 32.4 g/dL (32.0-36.0) 02/14/19 10:14 RDW 14.1 % (11.5-14.0) H 02/14/19 10:14 Plt Count 210 10^3/uL (150-450) 02/14/19 10:14 Lymph % (Auto) 10.5 % (13-45) L 02/14/19 10:14 Price % (Auto) 11.4 % (3-13) 02/14/19 10:14 Eos % (Auto) 4.6 % (0-6) 02/14/19 10:14 Baso % (Auto) 0.3 % (0-2) 02/14/19 10:14 Absolute Neuts (auto) 3.9 10^3/uL (1.7-8.2) 02/14/19 10:14 Absolute Lymphs (auto) 0.6 10^3/uL (0.5-4.7) 02/14/19 10:14 Absolute Monos (auto) 0.6 10^3/uL (0.1-1.4) 02/14/19 10:14 Absolute Eos (auto) 0.2 10^3/uL (0.0-0.6) 02/14/19 10:14 Absolute Basos (auto) 0.0 10^3/uL (0.0-0.2) 02/14/19 10:14 Total Counted 100 02/10/19 23:40 Seg Neutrophils % 73.2 % (42-78) 02/14/19 10:14 Seg Neuts % (Manual) 88 % (42-78) H 02/10/19 23:40 Lymphocytes % (Manual) 6 % (13-45) L 02/10/19 23:40 Monocytes % (Manual) 4 % (3-13) 02/10/19 23:40 Eosinophils % (Manual) 2 % (0-6) 02/10/19 23:40 Basophils % (Manual) 0 % (0-2) 02/10/19 23:40 Abs Neuts (Manual) 8.6 10^3/uL (1.7-8.2) H 02/10/19 23:40 Abs Lymphs (Manual) 0.6 10^3/uL (0.5-4.7) 02/10/19 23:40 Abs Monocytes (Manual) 0.4 10^3/uL (0.1-1.4) 02/10/19 23:40 Absolute Eos (Manual) 0.2 10^3/uL (0.0-0.6) 02/10/19 23:40 Abs Basophils (Manual) 0.0 10^3/uL (0.0-0.2) 02/10/19 23:40 Platelet Comment ADEQUATE 02/10/19 23:40 Hypochromasia SLIGHT 02/10/19 23:40 Anisocytosis SLIGHT 02/10/19 23:40 Microcytosis 1+ 02/10/19 23:40 PT 13.1 SEC (11.4-15.4) 02/10/19 23:40 INR 0.99 02/10/19 23:40 APTT 30.5 SEC (23.5-35.8) 02/10/19 23:40 VBG pH 7.46 (7.30-7.42) H 02/10/19 23:40 VBG pCO2 39.0 mmHg (35-63) 02/10/19 23:40 VBG HCO3 26.9 mmol/L (20-32) 02/10/19 23:40 VBG Base Excess 3.0 mmol/L 02/10/19 23:40 Sodium 135.1 mmol/L (137-145) L 02/14/19 10:14 Potassium 4.1 mmol/L (3.6-5.0) 02/14/19 10:14 Chloride 96 mmol/L (98-107) L 02/14/19 10:14 Carbon Dioxide 29 mmol/L (22-30) 02/14/19 10:14 Anion Gap 10 (5-19) 02/14/19 10:14 BUN 12 mg/dL (7-20) 02/14/19 10:14 Creatinine 1.25 mg/dL (0.52-1.25) 02/14/19 10:14 Est GFR ( Amer) > 60 (>60) 02/14/19 10:14 Est GFR (MDRD) Non-Af 57 (>60) L 02/14/19 10:14 Glucose 188 mg/dL (75-110) H 02/14/19 10:14 POC Glucose 192 mg/dL (70-110) H 02/14/19 12:02 Lactic Acid 2.5 mmol/L (0.7-2.1) H 02/10/19 23:40 Calcium 9.3 mg/dL (8.4-10.2) 02/14/19 10:14 Magnesium 2.2 mg/dL (1.6-2.3) 02/14/19 10:14 Total Bilirubin 0.6 mg/dL (0.2-1.3) 02/14/19 10:14 Direct Bilirubin 0.1 mg/dL (0.0-0.4) 02/14/19 10:14 Neonat Total Bilirubin Not Reportable 02/14/19 10:14 Neonat Direct Bilirubin Not Reportable 02/14/19 10:14 Neonat Indirect Bili Not Reportable 02/14/19 10:14 AST 23 U/L (17-59) 02/14/19 10:14 ALT 12 U/L (<50) 02/14/19 10:14 Alkaline Phosphatase 69 U/L (38-126) 02/14/19 10:14 Total Protein 6.8 g/dL (6.3-8.2) 02/14/19 10:14 Albumin 3.7 g/dL (3.5-5.0) 02/14/19 10:14 Urine Color YELLOW 02/10/19 23:40 Urine Appearance CLEAR 02/10/19 23:40 Urine pH 6.0 (5.0-9.0) 02/10/19 23:40 Ur Specific [place] 1.018 02/10/19 23:40 Urine Protein >=500 mg/dL (NEGATIVE) H 02/10/19 23:40 Urine Glucose (UA) NEGATIVE mg/dL (NEGATIVE) 02/10/19 23:40 Urine Ketones NEGATIVE mg/dL (NEGATIVE) 02/10/19 23:40 Urine Blood NEGATIVE (NEGATIVE) 02/10/19 23:40 Urine Nitrite NEGATIVE (NEGATIVE) 02/10/19 23:40 Urine Bilirubin NEGATIVE (NEGATIVE) 02/10/19 23:40 Urine Urobilinogen 2.0 mg/dL (<2.0) H 02/10/19 23:40 Ur Leukocyte Esterase NEGATIVE (NEGATIVE) 02/10/19 23:40 Urine WBC (Auto) 3 /HPF 02/10/19 23:40 Urine RBC (Auto) 1 /HPF 02/10/19 23:40 Urine Mucus (Auto) RARE /LPF 02/10/19 23:40 Urine Ascorbic Acid NEGATIVE (NEGATIVE) 02/10/19 23:40 Impressions: Chest X-Ray 02/10/19 23:41 IMPRESSION: Patchy left basilar opacity. Consider atelectasis or pneumonia to include aspiration. copyright 2010 [employer]- All Rights Reserved Abdomen/Pelvis CT 02/10/19 23:50 IMPRESSION: No acute findings. Stroke Is this a Stroke Patient?: No Stroke Pt being discharged on Anti-thrombolytic therapy?: No Reason(s) for not prescribing Anti-thrombolytic therapy:: Not indicated Reason(s) for not prescribing Anti-coagulation therapy:: Not indicated Reason(s) for not prescribing Statins therapy:: Not indicated Acute Heart Failure - Is this a Heart Failure Patient?: No
== END 2019-02-14 14:40 | disposition home or self-care (01) | DRG 177 ==
LOC: ER 22:19 → EH 02-11 04:19 → 5 02-11 05:43 → UNDODISIN 02-13 22:17
PROVIDERS: ADMIT Internal Medicine; ATTEND Internal Medicine
DX: J69.0 Pneumonitis due to inhalation of food and vomit (principal); J96.01 Acute respiratory failure with hypoxia; N18.2 Chronic kidney disease, stage 2 (mild); I12.9 Hypertensive chronic kidney disease with stage 1 through stage 4 chronic kidney disease, or unspecified chronic kidney disease; E11.22 Type 2 diabetes mellitus with diabetic chronic kidney disease; D3A.8 Other benign neuroendocrine tumors; R10.84 Generalized abdominal pain; Z79.82 Long term (current) use of aspirin; Z79.899 Other long term (current) drug therapy
CPT/HCPCS: 36415; 71046; 74177; 80048; 80053; 81001; 82803; 82962; 83605; 83735; 85025; 85610; 85730; 87040; 87086; 93005; 93010; 94640; 94667; 94668; 94799; 96361; 96365; 99285; J0360; J0696; J0743; J1644; J1956; J2270; J2405; J3490; J7030; J7050; J7620

== ENCOUNTER → 2020-05-31 | Outpatient (CLI) | payer MEDICARE, OTHER ==
--- NOTE | 2020-05-31 13:57 | RADIOLOGY REPORT (SQ) ---
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 TECHNIQUE: Under fluoroscopic guidance, patient ingested effervescent granules followed by thick and thin barium. Fluoroscopic spot images and routine radiographic images acquired and stored on PACS. 12 MM BARIUM TABLET GIVEN: Barium tablet passed through the esophagus and into the stomach without de lay. LIMITATIONS: None. FLUOROSCOPY TIME: FLUORO TIME: 2.1 minutes 15 images saved to PACS. FINDINGS: NEUROMUSCULAR COORDINATION OF SWALLOW: Normal. No aspiration. ESOPHAGEAL MOTILITY: Mild tertiary contractions. ESOPHAGEAL MUCOSA: Normal mucosa without masses or ulceration. GASTRO-ESOPHAGEAL JUNCTION: Small hiatal hernia. No gastroesophageal reflux seen on today's study. STOMACH: Normal without masses or ulcerations. GASTRIC OUTLET: No delay in emptying. Normal pylorus. DUODENAL BULB: Normal distention. No spasm or ulceration. DUODENUM: Mucosa normal. No extrinsic masses or malrotation. PROXIMAL SMALL BOWEL: Mucosa normal. No extrinsic masses or malrotation. NON-GI TRACT STRUCTURES: No significant finding. OTHER: No other significant finding. IMPRESSION: SMALL HIATAL HERNIA WITH MILD ESOPHAGEAL TERTIARY CONTRACTIONS. OTHERWISE UNREMARKABLE STUDY. COMMENT: NONE Quality ID [id number]: Final reports for procedures using fluoroscopy that document radiation exposure brian ada, or exposure time and number of fluorographic images (if radiation exposure indices are not avail able) TECHNICAL DOCUMENTATION: JOB ID: [id number] 2010 [employer]- All Rights Reserved Reading location - IP/workstation name: [facility]
--- NOTE | 2020-05-31 14:02 | RADIOLOGY REPORT (SQ) ---
EXAM DESCRIPTION: Upper GI small bowel IMAGES COMPLETED DATE/TIME: 05/31/2020 REASON FOR STUDY: Malignant carcinoid COMPARISON: None. TECHNIQUE: Initial fire claims adjuster image of abdomen acquired, followed by administration of oral contrast. Se rial radiographic images acquired. Fluoroscopic images recorded of terminal ileum and other indicate d areas. All images stored on PACS. LIMITATIONS: None. FLUORO TIME: 0.9 minutes FINDINGS: JACQUARD LOOM CARD CHANGER KUB: Non-obstructive bowel pattern. No abnormal calcifications. Soft tissue planes normal. STOMACH: No significant reflux. Normal distention without abnormality. DUODENUM: Normal mucosal pattern with adequate distention. No displacement or obstruction. JEJUNUM: Normal mucosal pattern. No dilatation, segmentation, strictures or masses. ILEUM: Normal mucosal pattern. No dilatation, segmentation, strictures or masses. TERMINAL ILEUM AND ILEO-CECAL VALVE: Normal mucosal pattern without cobble-stoning or stricture. Nor mal compression. PROXIMAL COLON: Incompletely imaged. No abnormality. OTHER: Small bowel transit 2 hours. IMPRESSION: UNREMARKABLE BARIUM SMALL BOWEL EXAM. NO MASS IDENTIFIED. Reading location - IP/workstation name: [email or web address]
== END ==
LOC: RAD 05-30 08:42
PROVIDERS: ATTEND Internal Medicine Gastroenterology
DX: C7A.011 Malignant carcinoid tumor of the jejunum (principal); K44.9 Diaphragmatic hernia without obstruction or gangrene
CPT/HCPCS: 74246; 74248